=== PATIENT | female | born 1945 | race Caucasian/White ===

== ENCOUNTER → 2016-11-29 | Outpatient (CLI) | payer MEDICARE | END | disposition home or self-care (01) | LOC: CFH 13:25 | PROVIDERS: ATTEND Internal Medicine | DX: Z12.31 Encounter for screening mammogram for malignant neoplasm of breast (principal) | CPT/HCPCS: 77063; G0202 ==

== ENCOUNTER → 2017-11-26 | Outpatient (CLI) | payer MEDICARE | END | disposition home or self-care (01) | LOC: CFH 12:40 | PROVIDERS: ATTEND Internal Medicine Critical Care Medicine | DX: J47.9 Bronchiectasis, uncomplicated (principal); J98.11 Atelectasis; R06.00 Dyspnea, unspecified; R91.8 Other nonspecific abnormal finding of lung field; R59.0 Localized enlarged lymph nodes | CPT/HCPCS: 71250 ==

== ENCOUNTER → 2017-12-18 | Outpatient (CLI) | payer MEDICARE | END | disposition home or self-care (01) | LOC: CFH 12:09 | PROVIDERS: ATTEND Internal Medicine | DX: Z12.31 Encounter for screening mammogram for malignant neoplasm of breast (principal) | CPT/HCPCS: 77067 ==

== ENCOUNTER → 2018-05-02 | Outpatient (CLI) | payer MEDICARE | END | disposition home or self-care (01) | LOC: CFH 10:34 | PROVIDERS: ATTEND Internal Medicine | DX: M81.0 Age-related osteoporosis without current pathological fracture (principal); E04.2 Nontoxic multinodular goiter; E03.9 Hypothyroidism, unspecified; J45.901 Unspecified asthma with (acute) exacerbation | CPT/HCPCS: 76536; 77080 ==

== ENCOUNTER → 2019-06-02 | Outpatient (CLI) | payer MEDICARE | END | disposition home or self-care (01) | LOC: CFH 09:44 | PROVIDERS: ATTEND Internal Medicine | DX: E04.1 Nontoxic single thyroid nodule (principal); E03.9 Hypothyroidism, unspecified; E78.5 Hyperlipidemia, unspecified; J45.909 Unspecified asthma, uncomplicated | CPT/HCPCS: 76536 ==

== ENCOUNTER → 2019-07-23 | Outpatient (CLI) | payer MEDICARE | END | disposition home or self-care (01) | LOC: CFH 15:20 | PROVIDERS: ATTEND Internal Medicine | DX: R91.8 Other nonspecific abnormal finding of lung field (principal); J45.909 Unspecified asthma, uncomplicated | CPT/HCPCS: 71046 ==

== ENCOUNTER → 2019-07-23 | Outpatient (CLI) | payer MEDICARE ==
[2019-07-23 16:38] LABS: BASOPHILS # (AUTO) 0.02 x10^3/uL (0-0.1); BASOPHILS % (AUTO) 0 % (0-1); EOSINOPHILS # (AUTO) 0.53 x10^3/uL (0-0.4); EOSINOPHILS % (AUTO) 4 % (1-7); LYMPHOCYTES # (AUTO) 1.19 x10^3/uL (1-3.4); LYMPHOCYTES % (AUTO) 9 % (22-44); MD NO; MEAN CORPUSCULAR HEMOGLOBIN 29.3 pg (27.0-34.8); MEAN CORPUSCULAR HGB CONC 33.6 g/dL (32.4-35.8); MEAN PLATELET VOLUME 8.1 fL (7.4-10.4); MONOCYTES # (AUTO) 1.05 x10^3/uL (0.2-0.8); MONOCYTES % (AUTO) 8 % (2-9); NEUTROPHILS # (AUTO) 11.27 x10^3/uL (1.8-6.8); NEUTROPHILS % (AUTO) 80 % (42-75); PLATELET COUNT 312 x10^3/uL (130-400); RED BLOOD COUNT 4.71 x10^6/uL (3.82-5.3); RED CELL DISTRIBUTION WIDTH 13.6 % (9.6-15.2)
== END | disposition home or self-care (01) ==
LOC: LAB 15:57
PROVIDERS: ATTEND Internal Medicine
DX: Z12.11 Encounter for screening for malignant neoplasm of colon (principal); Z13.220 Encounter for screening for lipoid disorders; Z12.39 Encounter for other screening for malignant neoplasm of breast; Z12.4 Encounter for screening for malignant neoplasm of cervix; R07.9 Chest pain, unspecified; D72.1 Eosinophilia; J47.9 Bronchiectasis, uncomplicated; J45.909 Unspecified asthma, uncomplicated; E03.9 Hypothyroidism, unspecified; E78.5 Hyperlipidemia, unspecified; R94.2 Abnormal results of pulmonary function studies; M25.9 Joint disorder, unspecified; R01.1 Cardiac murmur, unspecified; R31.9 Hematuria, unspecified; J18.9 Pneumonia, unspecified organism; K80.20 Calculus of gallbladder without cholecystitis without obstruction; E04.9 Nontoxic goiter, unspecified
CPT/HCPCS: 36415; 85025; 87040